=== PATIENT | female | born 1990 | race Two or more races ===

== ENCOUNTER 2022-07-23 06:16 | Emergency (ER) | payer BC ==
[~2022-07-23] VITALS: Ht 167.6 cm; Wt 79.4 kg
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
[2022-07-23] MEDS ORDERED: TRAMADOL HCL 50 MG TABLET ONE (06:51)
[2022-07-23] MEDS ORDERED: IBUPROFEN 400 MG TABLET ONE (06:52)
--- NOTE | 2022-07-23 06:57 | NUR ---
PT SIGNED WEIVER
[2022-07-23] MEDS ORDERED: TRAMADOL HCL 50 MG TABLET PO ONE (07:00)
[2022-07-23] MEDS ORDERED: IBUPROFEN 400 MG TABLET PO ONE (07:00)
[2022-07-23] MEDS ORDERED: TRAM-351 PO (07:23)
[2022-07-23] MEDS ORDERED: IBUP-1957 PO (07:23)
[2022-07-23 07:29] VITALS: BP 120/70
--- NOTE | 2022-07-23 07:29 | NUR ---
Patient discharged to home in stable condition. Written and verbal after care instructions given. Patient verbalizes understanding of instruction.
== END 2022-07-23 07:29 | disposition home or self-care (01) ==
LOC: ER 06:20
DX: S90.32XA Contusion of left foot, initial encounter (principal); S60.221A Contusion of right hand, initial encounter; R07.89 Other chest pain; V49.49XA Driver injured in collision with other motor vehicles in traffic accident, initial encounter; Y93.89 Activity, other specified; Y92.413 State road as the place of occurrence of the external cause; Y99.8 Other external cause status
CPT/HCPCS: 71045-TC; 73130-TC; 73630-TC